=== PATIENT | male | born 1945 | race Asian ===

== ENCOUNTER → 2021-04-11 | Day surgery (SDC) | payer MEDICARE ==
[~2021-04-11] MED LIST: LOSARTAN POTASS25 MG PO; OR PHACO EYE KIT ONE; PREOP PHACO EYE KIT ONE
[2021-04-11 14:20] VITALS: BP 161/89
== END | disposition home or self-care (01) ==
LOC: OR 11:57
PROVIDERS: ATTEND Ophthalmology
DX: H25.12 Age-related nuclear cataract, left eye (principal); M19.90 Unspecified osteoarthritis, unspecified site; I10 Essential (primary) hypertension; E78.5 Hyperlipidemia, unspecified; K21.9 Gastro-esophageal reflux disease without esophagitis; R09.89 Other specified symptoms and signs involving the circulatory and respiratory systems; R01.1 Cardiac murmur, unspecified; E78.00 Pure hypercholesterolemia, unspecified
CPT/HCPCS: 93005

== ENCOUNTER → 2021-05-02 | Day surgery (SDC) | payer MEDICARE ==
[~2021-05-02] MED LIST changes: +FENTANYL CITRATE/PF 100MCG/2 ML INJ ONE; +MIDAZOLAM HCL 2 MG/2 ML VIAL ONE
[2021-05-02 12:40] VITALS: BP 163/90
== END | disposition home or self-care (01) ==
LOC: OR 10:23
PROVIDERS: ATTEND Ophthalmology
DX: H25.11 Age-related nuclear cataract, right eye (principal); I10 Essential (primary) hypertension; R09.89 Other specified symptoms and signs involving the circulatory and respiratory systems; R01.1 Cardiac murmur, unspecified; E78.00 Pure hypercholesterolemia, unspecified
CPT/HCPCS: 66984; J2250; J3010; V2632